=== PATIENT | female | born 1950 | race Caucasian/White ===

== ENCOUNTER 2018-09-01 08:24 | Day surgery (SDC) | payer MEDICARE, OTHER, SELFPAY ==
[2018-09-01] VITALS (7 sets, daily range): BP systolic 102–158; BP diastolic 51–83; PULSE 51–67; RESP 16; TEMP 36.2–36.3; O2SAT 99–100; BMI 18.3
--- NOTE | 2018-09-01 09:30 | HP.PCM_ITS ---
Problem List (1) Screening for colon cancer Status: Acute History of Present Illness Date of Admission: 09/01/18 The patient is a 68 year old F who presents for screening colonoscopy. Past Medical History Allergies Penicillins Allergy (Verified 08/28/18 10:44) Rash prochlorperazine [From Compazine] Allergy (Verified 08/28/18 10:44) Swelling doxycycline [From Vibramycin] Adverse Reaction (Verified 08/28/18 10:44) Nausea/Vom/Diarrhea Home Medications: Ambulatory Orders Medication Instructions Recorded Cholecalciferol (Vitamin D3) 10,000 unit PO SUMOWEFR 08/28/18 [Vitamin D3] L.acidoph,Paracasei, B.lactis 1 each PO DAILY 08/28/18 [Probiotic] Medhavay 1 tab PO DAILY 08/28/18 Marlene Vati 1 tab PO DAILY 08/28/18 Ventura-3 Fatty Acids/Fish Oil [Fish 1 each PO BID 08/28/18 Oil 1,000 mg Capsule] Turmeric/Turmeric Root Extract 1 each PO BID 08/28/18 [Turmeric 500 mg Capsule] Ubidecarenone [Coq-10] 200 mg PO DAILY 08/28/18 Smoking Status: Never smoker Tobacco Use: Non-smoker - *Family History Maternal History Items: No pertinent history Review of Systems Cardiovascular: Denies: Chest Pain, Chest Pressure, Chest Tightness, Palpitations Respiratory: Denies: Cough, Hemoptysis, Shortness of breath at rest, Shortness of breath upon exertion, Wheezing Gastrointestinal: Denies: Abdominal Pain, Constipation, Diarrhea, Hematemesis, Nausea, Melena, Vomiting VTE Information - Inpt Only VTE Present on Admission: No VTE Mechan Device Prophylaxis: None VTE Pharm Prophylaxis ordered?: No Reason prophylaxis not ordered:: Treatment Not Indicated Patient Problems: Active and Suspected Problems Screening for colon cancer (Acute) - Physical Exam General: Alert, Oriented x3 Lungs: Clear to auscultation Cardiovascular: Regular rate, Regular Rhythm, No murmurs Abdomen: Bowel Sounds Present, Soft, Non Tender, Non-Distended Vital Signs Temp Pulse Resp BP Pulse Ox 97.2 F L 67 16 158/83 H 100 09/01/18 09:07 09/01/18 09:07 09/01/18 09:07 09/01/18 09:07 09/01/18 09:07 Oxygen Delivery Method Room Air Weight: 105 lb 9.623 oz Body Mass Index (BMI) 18.3 Assessment/Plan All Active Problems Screening for colon cancer (Acute) Plan is to perform a colonoscopy. Risk and benefits were reviewed with the patient to include bleeding possible injury to the colon which could require further surgery she agrees to proceed.
--- NOTE | 2018-09-01 09:55 | OP.ENDO_ITS ---
09/01/2018 Evan Dwyer Re : Colonoscopy procedure for Mar Conrad Dear Reymundo This procedure was performed on Saturday, September 01, 2018. My impressions and recommendations are as follows: Impressions : - Non-bleeding external and internal hemorrhoids. - The examination was otherwise normal. - No specimens collected. Recommendations : - Discharge patient to home. - Resume previous diet. - Continue present medications. - Repeat colonoscopy in 10 years for screening purposes. - Return to primary care physician at appointment to be scheduled. My findings are described in the full procedure note, which is enclosed. If I can be of further assistance, please feel free to contact me at Doctor phone number(s): , Fax: [phone], Work: . Sincerely, MD Artis Ortiz MD 09/01/2018 9:54:44 AM This report has been signed electronically.
== END 2018-09-01 10:48 | disposition home or self-care (01) ==
LOC: EN 08:26 → AC 08:48
PROVIDERS: Family Provider Family Medicine; PCP Family Medicine; Referring Provider Surgery; Visit Provider Surgery
PROC: 0DJD8ZZ Inspection of Lower Intestinal Tract, Via Natural or Artificial Opening Endoscopic (ICD-10-PCS; CPT 45378; principal; 2018-09-01 09:25)
DX: Z12.11 Encounter for screening for malignant neoplasm of colon (principal); K64.8 Other hemorrhoids; K64.4 Residual hemorrhoidal skin tags; Z85.3 Personal history of malignant neoplasm of breast; Z86.2 Personal history of diseases of the blood and blood-forming organs and certain disorders involving the immune mechanism
CPT/HCPCS: G0121; J7120

== ENCOUNTER 2020-01-20 08:13 | Day surgery (SDC) | payer MEDICARE, OTHER, SELFPAY ==
[2020-01-12 10:01] VITALS: BMI 18.3
--- NOTE | 2020-01-12 10:01 | HP_ITS ---
Intake Vital Signs 01/12/20 BMI 18.3 01/12/20 Height 5 ft 3.6 in 01/12/20 Weight: 107 lb 01/12/20 BMI 18.6 01/12/20 BP 172/76 H 01/12/20 Blood Pressure Location Rt brachial 01/12/20 Position Sitting 01/12/20 Respiration 18 01/12/20 Pulse 72 01/12/20 Pulse Source Monitor 01/12/20 Temp 97.7 F L 01/12/20 Temp Source Temporal 01/12/20 Pulse Oximetry (%) 99 01/12/20 Oxygen Delivery Method room air Intake Visit Reasons: Abdominal Pain Allergies Penicillins Allergy (Verified 01/12/20 09:57) Rash prochlorperazine [From Compazine] Allergy (Verified 01/12/20 09:57) Swelling doxycycline [From Vibramycin] Adverse Reaction (Verified 01/12/20 09:57) Nausea/Vom/Diarrhea Medications L.acidoph,Paracasei, B.lactis [Probiotic] 1 ea PO DAILY 08/28/18 [History Confirmed 01/12/20] Medhavay 1 tab PO DAILY 08/28/18 [History Confirmed 01/12/20] Marlene Vati 1 tab PO DAILY 08/28/18 [History Confirmed 01/12/20] Turmeric/Turmeric Root Extract [Turmeric 500 mg Capsule] 1 ea PO BID 08/28/18 [History Confirmed 01/12/20] Ubidecarenone [Coq-10] 200 mg PO DAILY 08/28/18 [History Confirmed 01/12/20] omega-3 fatty acids-fish oil 340 mg-1,000 mg capsule 1 cap PO DAILY cap 01/12/20 [History Confirmed 01/12/20] ON LICENSE OF [facility] Medical History Screening for colon cancer (Acute) Abdominal pain (Acute) Arthritis (Acute) Fatigue (Acute) Hemorrhoid (Acute) History of breast cancer (Acute) Hypertension (Chronic) Surgical History History of bilateral mastectomy (Acute) History of colonoscopy (Acute ~2018) History of tonsillectomy (Acute) Family History Father Arthritis High cholesterol Kidney disease CVA (cerebral vascular accident) Thyroid disorder Mother Arthritis Brother Diabetes Hypertension Sister Diabetes Hypertension Social History (Updated 01/12/20 @ 10:[address] Artis Garza MD) Smoking Status: Never smoker alcohol intake: never substance use type: does not use HPI HPI Surgical H&P: Yes HPI: DANIEL BANG, is a 69 F who presents to the office today for Evaluation for epigastric abdominal pain. Patient and her spouse are in the process of moving to [place]. Over the last 2 months she has had significant epigastric abdominal pain not really associated with any foods. She has had a gallbladder ultrasound which was negative. She has tried taking probiotics which she thinks may have helped slightly but nevertheless it is a fairly constant pain does not appear to be significantly worse with food intake. I did a colonoscopy on her several years ago which was negative other than some diverticular disease and internal hemorrhoids. She has not noticed any blood in her stool. She is not having any nausea or vomiting. ROS General General: Yes fatigue and breast cancer; no weight change, appetite, colon cancer or weakness HEENT HEENT: No difficulty swallowing, eye injury, eye surgery, swollen glands or hoarseness Endo Endocrine: No thyroid disease, diabetes mellitus, thyroid cancer, Hair loss, heat intolerance or cold intolerance Skin Skin: No rash or changing moles Breast Breast: No left breast lump, right breast lump, nipple discharge, breast pain, abnormal mammogram, abnormal US or breast enlargement Musc Musculoskeletal: Yes arthritis; no back problems, rheumatoid arthritis, gout or joint pain Cardio Cardiovascular: Yes high blood pressure; no murmur, pacemaker, heart disease, atrial fibrillation, heart attack, heart stent, palpitations, shortness of breat with exertion or chest pain Psych Psychiatric: No depression, anxiety or hearing voices Resp Respiratory: No shortness of breath, No sleep apnea, No cough, No COPD, No asthma, No emphysema, No wheezing Gastro Gastrointestinal: Yes abdominal pain, No nausea or vomiting, No diarrhea, No constipation, No blood in stool, No acid reflux, Yes hemorrhoids, No ulcers, No gallbladder problem, No black,tarry stools Dov Hematologic: No blood thinners, No blood disorders, No bleeding, No anemia, No blood clots Neuro Neurologic: No system reviewed and no additional complaints, except as docu, No as per HPI, No abnormal walking, No abnormal hearing, No abnormal movements, No abnormal speech, No behavioral changes, No burning sensations, No confusion, No seizure-like activity, No unsteadiness, No dizziness, No localized weakness, No frequent falls, No headache(s), No lack of coordination, No loss of vision, No memory loss, No numbness, No other visual disturbances, No radiating pain, No restless legs, No sensory deficit, No fainting, No tingling, No tremor(s), No weakness, No other Exam Const General: no acute distress, well developed, well hydrated Orientation: oriented to person, oriented to place, oriented to time [facility] Head: normocephalic, atraumatic Ears: external ears normal Mouth: moist mucous membranes Eyes Sclera: sclerae normal Pupils: normal by confrontation Neck Neck: no lymphadenopathy noted Neck mass: No Thyroid: thyroid normal, symmetrical Chest Chest palpation & inspection: normal inspection of the chest Breast Palpation: No nipple discharge Resp Effort & Inspection: normal respiratory effort Auscultation: clear to auscultation bilaterally Percussion: percussion normal Cardio Rate: regular rate Rhythm: regular rhythm Heart Sounds: no murmurs GI Palpation: soft, no hepatosplenomegaly, no masses, nontender Rectal Exam: other Other: Rectal exam deferred. Extrem General: normal to inspection, no clubbing, cyanosis or edema Assessment & Plan Problems 1. Epigastric abdominal pain R10.13 Plan I have discussed the above with the patient. I have offered the patient esophagogastroduodenoscopy for evaluation. I have explained the risks/benefits of the procedure and described the procedure. I have discussed the risks with the patient, including but not limited to: infection, bleeding, perforation of the GI tract requiring emergency surgery, inability to complete the procedure, injury to any internal organs, complications of anesthesia, etc. - the patient understands and agrees to proceed. I have answered all the patient's questions to the patient's satisfaction and the patient has no further questions. The patient has been given instructions for the colon cleansing preparation. Coding Level of Care Code Off vis,est,level 3 Diagnoses Epigastric abdominal pain R10.13 COVID (Procedure Consent) Procedure Criteria Procedure Criteria: Yes Elective The surgeon/proceduralist and patient have discussed in detail the risk of exposure to and/or potential harm posed by the COVID-19 virus with having a surgery/procedure at this time versus the risk of? delaying the surgery/procedure. It is not possible to know either the risk of delaying the surgery or procedure or chance of getting an infection with perfect accuracy, but a joint decision was made between the patient and the surgeon/proceduralist ?to proceed at this time with the scheduled surgery/procedure as indicated on the consent form. 01/12/20 1002 <Electronically signed by Artis gaona MD> Date _ Artis Garza MD I have re-examined the patient. There are no clinical changes since date of exam.
--- NOTE | 2020-01-20 | GASB_PTH ---
PATIENT: DANIEL BANG LOC: EN U#:[id number] AGE/SX: 69/F ROOM: RE01/20/[address]: Dr. Artis Garza MD : 1950 BED: DIS: 01/20/2020 SPEC #: [id number] RECD: 01/20/20 11:00 STATUS: BRENNON LITTLE #: [id number] ANA: 01/20/20 00:[address]: Artis Garza DEPT: SURGICAL PATHOLOGY RECD BY: Enrique Jaeger ENTERED: 01/20/20 11:00 SP TYPE: Gastric Bx OTHR DR: Dr. Evan Dwyer MD Tissues: Gastric mucous membrane Procedures: Surgery Specimen Level IV HEADER OPERATION: EGD ([facility] [place]) PRE-OP DIAGNOSIS: Epigastric pain TISSUE SUBMITTED: Antrum biopsy for histo and H. pylori MICROSCOPIC DIAGNOSIS Gastric antrum, biopsy: Mild chronic gastritis. See comment. AM:hosea 01/21/20 COMMENT The results of immunohistochemistry for Helicobacter pylori will be reported separately ([id number]). MICROSCOPIC DESCRIPTION Slides are reviewed. GROSS DESCRIPTION Received in fixative is one container labeled with the patient's name and designated antrum biopsy. The specimen consists of one irregular fragment of light ta soft tissue that measures 0.4 x 0.3 x 0.1 cm. The specimen is totally submitted in one cassette. / SJ:rg 01/20/20 TC:3 CPT: 81886
[2020-01-20 08:31] VITALS: BP 153/62; PULSE 63; RESP 15; TEMP 36.2; O2SAT 100; BMI 18.3
[2020-01-20] MEDS: Lactated Ringers 1,000 ML 100 ML IV (08:40)
--- NOTE | 2020-01-20 09:15 | IMM_PTH ---
PATIENT: DANIEL BANG LOC: EN U#:[id number] AGE/SX: 69/F ROOM: RE01/20/[address]: Dr. Artis Garza MD : 1950 BED: DIS: 01/20/2020 SPEC #: [id number] RECD: 01/20/20 12:48 STATUS: SOUT REQ #: [id number] ANA: 01/20/20 09:[address]: Artis Garza DEPT: IMMUNOHISTOCHEMISTRY RECD BY: Yvette Begum ENTERED: 01/20/20 12:49 SP TYPE: IMMUNO OTHR DR: Dr. Evan Dwyer MD Tissues: Stomach, NOS Procedures: H Pylori (initial) PHYSICIAN & INSTITUTION [place] [id number] SPECIMEN INFORMATION: Tissue Source: Antrum biopsy Clinical Info: Epigastric pain Specimen Number: [id number] CPT code: 00927 METHODOLOGY: Deparaffinized sections of prefer/formalin-fixed tissue or PAP/DQ stained slides are incubated with monoclonal/polyclonal antibodies/oligonucleotide probes. Localization is made via biotin free immunoperoxidase method. Appropriate controls are performed and reacted as expected. Results on target cell population are indicated in the following table: RESULTS: ANTIBODY / CLONE RESULT H Pylori (polyclonal) negative These tests were developed and their performance characteristics determined by [facility]. They may not have been cleared or approved by the U.S. Food and Drug Administration. The FDA has determined that such clearance or approval is not necessary. INTERPRETATION: Antrum biopsy: Negative for Helicobacter pylori organisms. AM:hosea 01/22/20
[2020-01-20 09:16] VITALS: BP 117/70; BP 153/62; PULSE 61; RESP 16; TEMP 36.2; O2SAT 98
--- NOTE | 2020-01-20 09:18 | OP.EGD_ITS ---
Patient Name: Mar Conrad Procedure Date: 01/20/2020 8:49 AM Date of : 1950 Age: 69 Procedure: Upper GI endoscopy Indications: Epigastric abdominal pain Providers: Artis Garza MD Referring MD: Evan Dwyer Medicines: See the Anesthesia note for documentation of the administered medications Patient Profile: This is a 69 year old female. Refer to note in patient chart for documentation of history and physical. Complications: No immediate complications. Procedure: Pre-Anesthesia Assessment: - Prior to the procedure, a History and Physical was performed, and patient medications and allergies were reviewed. The patient's tolerance of previous anesthesia was also reviewed. The risks and benefits of the procedure and the sedation options and risks were discussed with the patient. All questions were answered, and informed consent was obtained. Prior Anticoagulants: The patient has taken no previous anticoagulant or antiplatelet agents. ASA Grade Assessment: II - A patient with mild systemic disease. After reviewing the risks and benefits, the patient was deemed in satisfactory condition to undergo the procedure. After obtaining informed consent, the endoscope was passed under direct vision. Throughout the procedure, the patient's blood pressure, pulse, and oxygen saturations were monitored continuously. The gastroscope was introduced through the mouth, and advanced to the second part of duodenum. The upper GI endoscopy was accomplished without difficulty. The patient tolerated the procedure well. Scope In: 9:07:21 AM Scope Out: 9:10:25 AM Total Procedure Duration Time 0 hours 3 minutes 4 seconds Findings: The examined esophagus was normal. Diffuse mild inflammation with hemorrhage characterized by adherent blood, congestion (edema) and erosions was found in the entire examined stomach. Biopsies were taken with a cold forceps for Helicobacter pylori testing. The examined duodenum was normal. No biopsies or other specimens were collected for this exam. Impression: - Normal esophagus. - Gastritis with hemorrhage. Biopsied. - Normal examined duodenum. No specimens collected. Recommendation: - Discharge patient to home. - Resume previous diet. - Use Prilosec (omeprazole) 40 mg PO daily for 2 months. - Continue present medications. Procedure Code(s): --- Professional --- 74081, Esophagogastroduodenoscopy, flexible, transoral; with biopsy, single or multiple Diagnosis Code(s): --- Professional --- K29.71, Gastritis, unspecified, with bleeding R10.13, Epigastric pain CPT copyright 2017 [employer]. All rights reserved. The codes documented in this report are preliminary and upon plant maintenance manager review may be revised to meet current compliance requirements. MD Artis Ortiz MD 01/20/2020 9:17:42 AM This report has been signed electronically. Number of Addenda: 0 Note Initiated On: 01/20/2020 8:49 AM
--- NOTE | 2020-01-20 09:18 | OP.CCLET_ITS ---
01/20/2020 Evan Dwyer Re : Upper GI endoscopy procedure for Mar Conrad Dear Reymundo This procedure was performed on Monday, January 20, 2020. My impressions and recommendations are as follows: Impressions : - Normal esophagus. - Gastritis with hemorrhage. Biopsied. - Normal examined duodenum. No specimens collected. Recommendations : - Discharge patient to home. - Resume previous diet. - Use Prilosec (omeprazole) 40 mg PO daily for 2 months. - Continue present medications. My findings are described in the full procedure note, which is enclosed. If I can be of further assistance, please feel free to contact me at Doctor phone number(s): , Fax: [phone], Work: . Sincerely, MD Artis Ortiz MD 01/20/2020 9:17:42 AM This report has been signed electronically.
[2020-01-20 09:21] VITALS: BP 120/62; BP 153/62; PULSE 60; RESP 17; O2SAT 97
[2020-01-20 09:26] VITALS: BP 121/65; BP 153/62; PULSE 57; RESP 16; O2SAT 97
[2020-01-20 09:31] VITALS: BP 113/57; BP 153/62; RESP 63; TEMP 36.3; O2SAT 97
[2020-01-20 10:00] VITALS: BP 153/62
== END 2020-01-20 10:01 | disposition home or self-care (01) ==
LOC: EN 08:14 → AC 08:15
PROVIDERS: Anesthesiology; PCP Family Medicine; Referring Provider Family Medicine; Visit Provider Surgery
PROC: 0DJ08ZZ Inspection of Upper Intestinal Tract, Via Natural or Artificial Opening Endoscopic (ICD-10-PCS; CPT 43235; principal; 2020-01-20 09:10)
DX: K29.51 Unspecified chronic gastritis with bleeding (principal); Z11.59 Encounter for screening for other viral diseases; I10 Essential (primary) hypertension; M19.90 Unspecified osteoarthritis, unspecified site; Z85.3 Personal history of malignant neoplasm of breast; R13.10 Dysphagia, unspecified; E78.00 Pure hypercholesterolemia, unspecified; Z79.899 Other long term (current) drug therapy
CPT/HCPCS: 43239; 87635; 88305; 88342; 94799; J7120; U0003